=== PATIENT | female | born 2000 | race Caucasian/White ===

== ENCOUNTER 2023-02-17 08:20 | Day surgery (SDC) | payer OTHER ==
[2023-02-17] MEDS ORDERED: Acetaminophen 500 MG TAB ONE (08:36)
[2023-02-17] MEDS ORDERED: Acetaminophen 500 MG TAB PO SCH (08:45)
[2023-02-17] MEDS ORDERED: Iron Sucrose Complex 500 MG in Sodium Chloride 0.9% 250 ML 250 ML IVPB SCH (08:45)
== END 2023-02-17 13:20 | disposition home or self-care (01) ==
LOC: CSHSDC/OP 08:20
PROVIDERS: ATTEND Advanced Practice Midwife
DX: O99.019 Anemia complicating pregnancy, unspecified trimester (principal); D64.9 Anemia, unspecified; Z3A.00 Weeks of gestation of pregnancy not specified
CPT/HCPCS: J1756; J7050